=== PATIENT | female | born 1955 | race Caucasian/White ===

== ENCOUNTER → 2017-03-30 | Outpatient (CLI) | payer MEDICARE ==
[2017-03-30 12:12] LABS: ABSOLUTE BASOPHILS # (AUTO) 0.1 10^3/uL (0.0-0.2); ABSOLUTE EOSINOPHILS # (AUTO) 0.3 10^3/uL (0.0-0.6); ABSOLUTE LYMPHOCYTES (AUTO) 2.1 10^3/uL (0.5-4.7); ABSOLUTE MONOCYTES (AUTO) 0.6 10^3/uL (0.1-1.4); ABSOLUTE NEUT (AUTO) 4.6 10^3/uL (1.7-8.2); EOSINOPHILS % (AUTO) 4.4 % (0-6); HEMATOCRIT 42.8 % (36.0-47.0); HEMOGLOBIN 14.4 g/dL (12.0-15.5); HGB HCT DIFFERENCE 0.4; LYMPHOCYTES % (AUTO) 27.5 % (13-45); MEAN CORPUSCULAR HEMOGLOBIN 29.9 pg (27.0-33.4); MEAN CORPUSCULAR HGB CONC 33.7 g/dL (32.0-36.0); MEAN CORPUSCULAR VOLUME 89 fl (80-97); MONOCYTES % (AUTO) 7.3 % (3-13); RED BLOOD COUNT 4.82 10^6/uL (3.72-5.28); RED CELL DISTRIBUTION WIDTH 12.7 % (11.5-14.0); SEGMENTED NEUTROPHILS % (AUTO) 59.8 % (42-78); WHITE BLOOD COUNT 7.7 10^3/uL (4.0-10.5)
[2017-03-30 12:38] LABS: ALANINE AMINOTRANSFERASE 31 U/L (9-52); ALBUMIN 4.6 g/dL (3.5-5.0); ALKALINE PHOSPHATASE 74 U/L (38-126); ANION GAP 14 (5-19); ASPARTATE AMINO TRANSFERASE 24 U/L (14-36); BILIRUBIN,DIRECT 0.3 mg/dL (0.0-0.4); BILIRUBIN,TOTAL 0.6 mg/dL (0.2-1.3); BLOOD UREA NITROGEN 10 mg/dL (7-20); CALCIUM 9.4 mg/dL (8.4-10.2); CARBON DIOXIDE 26 mmol/L (22-30); CHLORIDE 103 mmol/L (98-107); CHOLESTEROL 240.13 mg/dL (0-200); CREATININE RESULT 0.83 mg/dL (0.52-1.25); Direct HDL 47 mg/dL (>40); GLUCOSE 99 mg/dL (75-110); POTASSIUM 4.1 mmol/L (3.6-5.0); SODIUM 142.5 mmol/L (137-145); TOTAL PROTEIN 7.5 g/dL (6.3-8.2); TRIGLYCERIDES 293 mg/dL (<150)
[2017-03-30 12:49] LABS: DIRECT LDL 161 mg/dL (<100)
[2017-03-30 12:55] LABS: FREE T3 3.5 pg/mL (2.77-5.27); VLDL CHOLESTEROL 58.6 mg/dL (10-31)
[2017-03-30 13:08] LABS: THYROID STIMULATING HORMONE 2.5 uIU/mL (0.47-4.68)
[2017-03-31 07:13] LABS: THYROID PEROXIDASE (TPO) AB 9 IU/mL (0-34)
[2017-03-31 08:31] LABS: THYROGLOBULIN AB <1.0 IU/mL (0.0-0.9)
[2017-03-31 09:43] LABS: ESTRADIOL 72.2 pg/mL (.); PROGESTERONE <0.1 ng/mL (.)
== END ==
LOC: OD 11:05
PROVIDERS: ATTEND Pediatrics
DX: R19.7 Diarrhea, unspecified (principal); E78.5 Hyperlipidemia, unspecified; N95.9 Unspecified menopausal and perimenopausal disorder; E03.9 Hypothyroidism, unspecified
CPT/HCPCS: 36415; 80053; 80061; 82670; 84144; 84403; 84439; 84443; 84481; 85025; 86376; 86800

== ENCOUNTER → 2017-11-11 | Outpatient (CLI) | payer MEDICARE ==
[2017-11-11 11:17] LABS: ABSOLUTE BASOPHILS # (AUTO) 0.1 10^3/uL (0.0-0.2); ABSOLUTE EOSINOPHILS # (AUTO) 0.2 10^3/uL (0.0-0.6); ABSOLUTE LYMPHOCYTES (AUTO) 1.6 10^3/uL (0.5-4.7); ABSOLUTE MONOCYTES (AUTO) 0.6 10^3/uL (0.1-1.4); ABSOLUTE NEUT (AUTO) 4.4 10^3/uL (1.7-8.2); BASOPHILS % (AUTO) 1.2 % (0-2); EOSINOPHILS % (AUTO) 2.8 % (0-6); HEMATOCRIT 40.9 % (36.0-47.0); HEMOGLOBIN 13.9 g/dL (12.0-15.5); LYMPHOCYTES % (AUTO) 23.7 % (13-45); MEAN CORPUSCULAR HEMOGLOBIN 29.8 pg (27.0-33.4); MEAN CORPUSCULAR HGB CONC 34.1 g/dL (32.0-36.0); MEAN CORPUSCULAR VOLUME 87 fl (80-97); MONOCYTES % (AUTO) 8.9 % (3-13); PLATELET COUNT 237 10^3/uL (150-450); RED BLOOD COUNT 4.68 10^6/uL (3.72-5.28); RED CELL DISTRIBUTION WIDTH 13.1 % (11.5-14.0); SEGMENTED NEUTROPHILS % (AUTO) 63.4 % (42-78); TOTAL CELLS COUNTED % (AUTO) 100 %; WHITE BLOOD COUNT 6.9 10^3/uL (4.0-10.5)
[2017-11-11 11:43] LABS: ALANINE AMINOTRANSFERASE 68 U/L (9-52); ALBUMIN 4.8 g/dL (3.5-5.0); ALKALINE PHOSPHATASE 71 U/L (38-126); AMYLASE 74 U/L (30-110); ANION GAP 13 (5-19); ASPARTATE AMINO TRANSFERASE 55 U/L (14-36); BILIRUBIN,DIRECT 0.1 mg/dL (0.0-0.4); BILIRUBIN,TOTAL 0.4 mg/dL (0.2-1.3); BLOOD UREA NITROGEN 16 mg/dL (7-20); CALCIUM 10.2 mg/dL (8.4-10.2); CARBON DIOXIDE 25 mmol/L (22-30); CHLORIDE 104 mmol/L (98-107); CHOLESTEROL 279.68 mg/dL (0-200); GLUCOSE 92 mg/dL (75-110); LIPASE 116.1 U/L (23-300); POTASSIUM 4.5 mmol/L (3.6-5.0); SODIUM 141.8 mmol/L (137-145); TOTAL PROTEIN 7.2 g/dL (6.3-8.2); TRIGLYCERIDES 355 mg/dL (<150)
[2017-11-11 11:53] LABS: DIRECT LDL 208 mg/dL (<100)
[2017-11-15 14:58] LABS: SEROTONIN 0 ng/mL (0-420)
[2017-11-16 07:44] LABS: NORMETANEPHRINE 139 pg/mL (0-145)
[2017-11-16 08:02] LABS: METANEPHRINE 25 pg/mL (0-62)
== END ==
LOC: OD 10:18
PROVIDERS: ATTEND Pediatrics
DX: I10 Essential (primary) hypertension (principal); R19.7 Diarrhea, unspecified; E78.5 Hyperlipidemia, unspecified
CPT/HCPCS: 36415; 80053; 80061; 82150; 83690; 83835; 84260; 85025

== ENCOUNTER → 2018-01-30 | Outpatient (CLI) | payer MEDICARE ==
[2018-01-30 12:58] LABS: ALANINE AMINOTRANSFERASE 40 U/L (9-52); ALBUMIN 4.5 g/dL (3.5-5.0); ALKALINE PHOSPHATASE 67 U/L (38-126); ASPARTATE AMINO TRANSFERASE 31 U/L (14-36); BILIRUBIN,DIRECT 0.3 mg/dL (0.0-0.4); BILIRUBIN,TOTAL 0.3 mg/dL (0.2-1.3); GAMMA-GLUTAMYL TRANSFERASE 45 U/L (8-78); TOTAL PROTEIN 6.8 g/dL (6.3-8.2); URIC ACID 6.2 mg/dL (2.5-7.5)
[2018-01-31 09:39] LABS: HEPATITIS C VIRUS AB <0.1 s/co ratio (0.0-0.9)
[2018-01-31 09:50] LABS: HEPATITIS A AB TOTAL Negative (Negative); HEPATITIS B SURFACE AB QUANT <3.1 mIU/mL (Immunity>9.9)
[2018-01-31 15:17] LABS: MITOCHONDRIAL (M2) ANTIBODY 4.6 Units (0.0-20.0)
[2018-02-01 04:38] LABS: CREATININE URINE 96.5 mg/dL (Not Estab.)
[2018-02-01 07:59] LABS: OXALATE CREATININE RATIO URINE 26.9 mg/g creat (9.2-45.4)
[2018-02-01 14:55] LABS: ACTIN (SMOOTH MUSCLE) ANTIBODY 10 Units (0-19)
== END ==
LOC: OD 11:41
PROVIDERS: ATTEND Pediatrics
DX: M79.671 Pain in right foot (principal); R74.8 Abnormal levels of other serum enzymes; M19.90 Unspecified osteoarthritis, unspecified site
CPT/HCPCS: 36415; 80076; 82977; 84550; 86235; 86256; 86317; 86708; 86709; 86803; 86804

== ENCOUNTER → 2018-03-29 | Outpatient (CLI) | payer MEDICARE ==
[2018-03-29 12:48] LABS: ALANINE AMINOTRANSFERASE 33 U/L (9-52); ALBUMIN 4.4 g/dL (3.5-5.0); ALKALINE PHOSPHATASE 67 U/L (38-126); ANION GAP 12 (5-19); ASPARTATE AMINO TRANSFERASE 29 U/L (14-36); BILIRUBIN,DIRECT 0.3 mg/dL (0.0-0.4); BILIRUBIN,TOTAL 0.5 mg/dL (0.2-1.3); BLOOD UREA NITROGEN 12 mg/dL (7-20); CALCIUM 9.8 mg/dL (8.4-10.2); CARBON DIOXIDE 28 mmol/L (22-30); CHLORIDE 105 mmol/L (98-107); CHOLESTEROL 224.55 mg/dL (0-200); GLUCOSE 87 mg/dL (75-110); POTASSIUM 4.7 mmol/L (3.6-5.0); SODIUM 144.7 mmol/L (137-145); TOTAL PROTEIN 7.2 g/dL (6.3-8.2); TRIGLYCERIDES 337 mg/dL (<150)
[2018-03-29 13:04] LABS: DIRECT LDL 140 mg/dL (<100)
[2018-03-29 13:07] LABS: VLDL CHOLESTEROL 67.4 mg/dL (10-31)
[2018-03-30 07:53] LABS: CERULOPLASMIN 26.7 mg/dL (19.0-39.0)
[2018-03-31 10:14] LABS: MERCURY WHOLE BLD None Detected ug/L (0.0-14.9)
[2018-04-01 11:59] LABS: ZINC PLASMA OR SERUM 79 ug/dL (56-134)
== END ==
LOC: OD 11:51
PROVIDERS: ATTEND Pediatrics
DX: E78.5 Hyperlipidemia, unspecified (principal); R25.1 Tremor, unspecified; R41.3 Other amnesia; R94.5 Abnormal results of liver function studies
CPT/HCPCS: 36415; 80053; 80061; 82390; 82525; 83825; 84630; 86592